=== PATIENT | male | born 1990 | race Caucasian/White ===

== ENCOUNTER 2020-09-16 16:44 | Emergency (ER) | payer SELFPAY ==
--- NOTE | 2020-09-16 17:24 | EDPHYS ---
Physician Documentation [facility] Name: Darren Hendrix Age: 29 yrs Sex: Male : 1990 Arrival Date: 09/16/2020 Time: 16:46 Bed 24 Private MD: Jason Antoine T ED Physician Rohan Hernandez HPI: 09/16 17:20 This 29 yrs old Male presents to ER via Ambulatory with complaints of Poison cp Concha. 17:20 The patient's rash thought to be caused by Contact allergy poison concha. cp 17:20 The rash is located on the right arm and left arm. The rash can be described as cp erythematous, vesicular, itchy. Onset: The symptoms/episode began/occurred 6 day(s) ago. Associated signs and symptoms: Pertinent positives: burning sensation, itching, Pertinent negatives: difficulty breathing, fever, swelling of lips, swelling of throat, swelling of tongue, wheezing. Severity of symptoms: in the emergency department the symptoms are worse. Treatment given at home: OTC lotion/cream. Historical: - Allergies: 16:53 No Known Allergies; sv - PMHx: 16:53 None; sv - PSHx: 16:53 None; sv - Immunization history:: Adult Immunizations up to date. - Social history:: Smoking status: Patient denies any tobacco usage or history of. ROS: 17:22 Constitutional: Negative for body aches, chills, fever, poor PO intake. cp 17:22 Eyes: Negative for injury, pain, redness, and discharge. cp 17:22 Respiratory: Negative for cough, shortness of breath, wheezing. 17:22 Abdomen/GI: Negative for abdominal pain, nausea, vomiting, and diarrhea. 17:22 Skin: Positive for rash, of the right arm and left arm. 17:22 All other systems are negative. Exam: 17:23 Constitutional: The patient appears in no acute distress, alert, awake, non-toxic, well cp developed, well nourished. 17:23 Head/Face: Normocephalic, atraumatic. cp 17:23 Cardiovascular: Rate: normal. 17:23 Respiratory: the patient does not display signs of respiratory distress, Respirations: normal. 17:23 Skin: cellulitis, is not appreciated, rash a moderate rash is noted, rash can be described as erythematous, vesicular, erosion of dermal skin layer with serosanguinous drainage, on the right arm and left arm. Vital Signs: 16:53 BP 118 / 83; Pulse 87; Resp 16; Temp 98; Pulse Ox 98% ; Weight 108.86 kg; Height 5 ft. sv 11 in. (180.34 cm); 16:53 Body Mass Index 33.47 (108.86 kg, 180.34 cm) sv MDM: 17:18 Patient medically screened. cp 17:24 Differential diagnosis: impetigo, contact dermatitis, cellulitis. cp 17:24 Data reviewed: vital signs, nurses notes, and as a result, I will discharge patient. cp Counseling: I had a detailed discussion with the patient and/or guardian regarding: the historical points, exam findings, and any diagnostic results supporting the discharge/admit diagnosis, to return to the emergency department if symptoms worsen or persist or if there are any questions or concerns that arise at home. Administered Medications: 17:24 Drug: SOLU-Medrol (methylPREDNISolone sodium succinate) 125 mg Route: IM; Site: right hb deltoid; 17:40 Follow up: Response: No adverse reaction hb Disposition: 18:01 Co-signature as Attending Physician, Rohan Hernandez MD I agree with the assessment and kdr plan of care. Disposition: 09/16/20 17:24 Discharged to Home. Impression: Irritant contact dermatitis. - Condition is Stable. - Discharge Instructions: Poison Concha Dermatitis. - Prescriptions for Prednisone 20 mg Oral Tablet - take 2 tablets by ORAL route once daily for 5 days then take 1 tablet daily for 5 days; 15 tablet. Triamcinolone Acetonide 0.5 % Topical Cream - apply 1 application by TOPICAL route 2 times per day As needed apply to areas of rash as directed except face; 1 tube. - Medication Reconciliation Form, Thank You Letter, Antibiotic Education, Prescription Opioid Use form. - Follow up: Private Physician; When: 2 - 3 days; Reason: Worsening of condition. - Problem is new. - Symptoms have improved. Signatures: Perla Yo RN RN Rohan Hernandez MD MD kdr Page, Corey, PA PA cp Molly Plasencia RN RN Corrections: (The following items were deleted from the chart) 17:41 17:24 09/16/2020 17:24 Discharged to Home. Impression: Irritant contact dermatitis. hb Condition is Stable. Discharge Instructions: Poison Concha Dermatitis. Prescriptions for Prednisone 20 mg Oral Tablet - take 2 tablets by ORAL route once daily for 5 days then take 1 tablet daily for 5 days; 15 tablet, Triamcinolone Acetonide 0.5 % Topical Cream - apply 1 application by TOPICAL route 2 times per day As needed apply to areas of rash as directed except face; 1 tube. and Forms are Medication Reconciliation Form, Thank You Letter, Antibiotic Education, Prescription Opioid Use. Follow up: Private Physician; When: 2 - 3 days; Reason: Worsening of condition. Problem is new. Symptoms have improved. cp
--- NOTE | 2020-09-16 17:24 | ER ---
Nurse's Notes [facility] Name: Darren Hendrix Age: 29 yrs Sex: Male : 1990 Arrival Date: 09/16/2020 Time: 16:46 Bed 24 Private MD: Jason Antoine T Diagnosis: Irritant contact dermatitis Presentation: 09/16 16:52 Chief complaint: Patient states: poison oak rash since Friday and keeps getting worse. sv Coronavirus screen: Client denies travel out of the [place] in the last 14 days. At this time, the client does not indicate any symptoms associated with coronavirus-19. Ebola Screen: No symptoms or risks identified at this time. Risk Assessment: Do you want to hurt yourself or someone else? Patient reports no desire to harm self or others. Onset of symptoms was September 10, 2020. 16:52 Method Of Arrival: Ambulatory sv 16:52 Acuity: NAYA 4 sv 16:53 Initial Sepsis Screen: Does the patient meet any 2 criteria? No. Patient's initial sv sepsis screen is negative. Does the patient have a suspected source of infection? No. Patient's initial sepsis screen is negative. Triage Assessment: 16:55 General: Appears in no apparent distress. uncomfortable, Behavior is calm, cooperative, sv appropriate for age. Neuro: Level of Consciousness is awake, alert, obeys commands, Oriented to person, place, time, situation, Gait is steady. Respiratory: Respiratory effort is even, unlabored. Historical: - Allergies: 16:53 No Known Allergies; sv - PMHx: 16:53 None; sv - PSHx: 16:53 None; sv - Immunization history:: Adult Immunizations up to date. - Social history:: Smoking status: Patient denies any tobacco usage or history of. Screenin:18 Abuse screen: Denies threats or abuse. Denies injuries from another. Nutritional hb screening: No deficits noted. Tuberculosis screening: No symptoms or risk factors identified. Fall Risk None identified. Assessment: 17:18 General: Appears in no apparent distress. uncomfortable, Behavior is calm, cooperative. hb Pain: Pain currently is 3 out of 10 on a pain scale. Neuro: Level of Consciousness is awake, alert, obeys commands, Oriented to person, place, time, situation. Cardiovascular: Patient's skin is warm and dry. Respiratory: Respiratory effort is even, unlabored, Respiratory pattern is regular, symmetrical. GI: No signs and/or symptoms were reported involving the gastrointestinal system. : No signs and/or symptoms were reported regarding the genitourinary system. EENT: No signs and/or symptoms were reported regarding the EENT system. Derm: Skin is pink, warm \T\ dry. Rash noted that is macular, weeping rash noted to bilateral inner arms, neck, abdomen, groin. Musculoskeletal: No signs and/or symptoms reported regarding the musculoskeletal system. Vital Signs: 16:53 BP 118 / 83; Pulse 87; Resp 16; Temp 98; Pulse Ox 98% ; Weight 108.86 kg; Height 5 ft. sv 11 in. (180.34 cm); 16:53 Body Mass Index 33.47 (108.86 kg, 180.34 cm) sv ED Course: 16:46 Patient arrived in ED. mr 16:46 Jason Antoine MD is Private Physician. mr 16:52 Triage completed. sv 16:53 Arm band placed on. sv 17:07 Miki Bob PA is PHCP. cp 17:07 Rohan Hernandez MD is Attending Physician. cp 17:16 Molly Plasencia, ELBA is Primary Nurse. hb 17:18 Patient has correct armband on for positive identification. Bed in low position. Call hb light in reach. 17:40 No provider procedures requiring assistance completed. Patient did not have IV access hb during this emergency room visit. Administered Medications: 17:24 Drug: SOLU-Medrol (methylPREDNISolone sodium succinate) 125 mg Route: IM; Site: right hb deltoid; 17:40 Follow up: Response: No adverse reaction hb Outcome: 17:24 Discharge ordered by MD. cp 17:40 Discharged to home ambulatory, with family. hb 17:40 Condition: stable 17:40 Discharge instructions given to patient, family, Instructed on discharge instructions, follow up and referral plans. medication usage, Demonstrated understanding of instructions, follow-up care, medications, Prescriptions given X 2. 17:41 Patient left the ED. hb Signatures: Perla Yo RN RN Shelly Coello mr Miki Bob PA PA Molly Santoyo RN RN hb
[2020-09-16] MEDS ORDERED: METHYLPREDNISOLONE 125 MG INJ ONE (17:41)
[2020-09-16 18:03] VITALS: BP 118/83; TEMP 98; O2SAT 98
== END 2020-09-16 17:41 | disposition home or self-care (01) ==
LOC: ER 16:44
DX: L23.7 Allergic contact dermatitis due to plants, except food (principal)
CPT/HCPCS: 96372; 99283; J2930